=== PATIENT | female | born 2005 | race Caucasian/White ===

== ENCOUNTER → 2024-02-26 | Outpatient (CLI) | payer OTHER ==
--- NOTE | 2024-02-26 21:45 | MR ---
EXAMINATION TYPE: MR knee LT wo con DATE OF EXAM: 02/26/2024 COMPARISON: Outside left knee x-ray February 15, 2024 HISTORY: Left knee pain, locking and swelling x3 weeks TECHNIQUE: Multiplanar, multisequence images of the knee is performed without IV contrast. FINDINGS: MEDIAL MENISCUS: Anterior and posterior horns are intact without tear. LATERAL MENISCUS: Anterior and posterior horns are intact without tear. CRUCIATE LIGAMENTS: The anterior and posterior cruciate ligaments are intact and unremarkable. COLLATERAL LIGAMENTS: The medial collateral ligament and lateral collateral ligament complex are inta ct and unremarkable. EXTENSOR MECHANISM: Visualized quadriceps and patellar tendons are intact. EFFUSION: No significant suprapatellar joint effusion. POPLITEAL CYST: No popliteal/white cyst. TRICOMPARTMENT SPACES: Tricompartment joint spaces are preserved. No significant spurring is seen. CARTILAGE: Tricompartment articular cartilage is maintained. BONE MARROW SIGNAL: No focal abnormal marrow signal is appreciated. OTHER: Mild subcutaneous edema posterior soft tissue is present. IMPRESSION: No meniscal or ligamentous tear is seen.
== END | disposition home or self-care (01) ==
LOC: RADMRIMAIN 20:15
PROVIDERS: ATTEND Orthopaedic Surgery
DX: M25.562 Pain in left knee (principal)